=== PATIENT | female | born 1950 | race Caucasian/White ===

== ENCOUNTER 2017-02-19 19:15 | Emergency (ER) | payer OTHER ==
--- NOTE | 2017-02-19 21:30 | ED NURSING NOTES ---
Clinical Report - Nurses [facility] [address] [place] [address] 02/19/2017 19:14 Patient: VIPUL PURVIS TRIAGE Triage time 19:51 Feb 19 2017. Chief Complaint: ABDOMINAL PAIN. Alert. No acute distress. SEPSIS SCREEN: Sepsis Screen: negative. Negative (no infection suspected/documented). DIETER COMA SCORE: [place] Coma Scale: 15- eyes open spontaneously (4); best verbal response- oriented x 4 (5); best motor response- obeys commands (6). --20:01 Silvia Naranjo R.N. 19:51 02/19/17. BP: 201/66. HR: 83. RR: 16. O2 saturation: 97%. Temp: 98.3 F. Pain level now: 01/05. --20:01 Silvia Naranjo R.N. Weight: 54.4 kg stated. Height/Length: 61 inches Per Patient. BMI: 22.7. --19:59 Silvia Naranjo R.N. Medications Levothyroxine Sodium Oral. --19:55 Silvia Naranjo R.N. Albuterol Sulfate Inhalation. --19:55 Silvia Naranjo R.N. Allergies None. --19:55 Silvia Naranjo R.N. History Arrived by private vehicle. Historian: patient. Accompanied by family. Onset was abrupt. Started while sleeping. Symptoms still present (about 0030 today). She has had vomiting. Last oral intake by patient was (about 4 PM). Treatment [employer]ER: Took an antacid. Seen within the last 30 days in a clinic; labs done; EKG done; treatment- other medication. PAST MEDICAL HX: Gastroesophageal reflux disease. Immunizations: up-to-date. The patient is post-menopausal. Denies current . SOCIAL HX: Former smoker, end date 1980. Occasional alcohol use. No drug use. No recent travel. No infectious disease exposure. No known contact with a sick individual. SELF HARM ASSESSMENT: A self harm assessment was performed. The patient answered "no" to the question "Do you have thoughts of harming or killing yourself?". ABUSE ASSESSMENT: Abuse assessment: The patient was asked "Do you feel safe in your home?". --20:01 Silvia Naranjo R.N. PROBLEMS: Melanoma in situ of skin (clinical). Thyroid Disease. Breast Cancer. Asthma. --19:57 Silvia Naranjo R.N. ADDITIONAL SURGERIES: Lumpectomy of breast. Mastectomy. Skin cancer removed. --19:57 Silvia Naranjo R.N. Assessment The patient states feels better. --20:01 Silvia Naranjo R.N. Interventions ID band on patient. To room. --20:01 Silvia Naranjo R.N. PHYSICAL ASSESSMENT Ambulatory to room. GENERAL / NEURO / PSYCH: Alert. Oriented X 4. Appears in no acute distress. RESPIRATORY: Respirations not labored. CVS: Capillary refill less than 2 seconds. GI / : Abdomen soft. Abdominal tenderness in the epigastric area. SKIN: Skin is warm and dry. --20:02 Silvia Naranjo R.N. NURSING PROGRESS NOTES Pulse oximeter and NIBP monitor placed on patient; monitor alarms on. Patient gowned. Head of bed elevated. Patient identifiers checked. Call light placed in reach. Side rails up. Bed placed in lowest position. Brakes of bed on. --20:02 Silvia Naranjo R.N. 20:35. ( US here to see patient). --21:06 Silvia Naranjo R.N. The patient reports no complaints and she is calm and resting quietly. Overall patient status- she states feels better. --21:13 Silvia Naranjo R.N. 21:12 02/19/17. BP: 208/68. HR: 78. RR: 16. O2 saturation: 96%. Pain level now: 11/07. --21:13 Silvia Naranjo R.N. DISPOSITION / DISCHARGE Departure time: 2129Feb 19 2017. Condition at departure: improved. No learning barriers present. Discharge instructions provided and reviewed with the patient. Reviewed medication(s) side effects, precautions, dosing and course information. Prescription(s) given to the patient. Reviewed referral to a surgeon. Patient verbalized understanding. Written instructions provided in Croatian. The patient was discharged home and accompanied by spouse. She left the Emergency Department ambulatory and via private vehicle. Spouse driving. FALL RISK ASSESSMENT: Fall risk assessment completed. No fall risk identified. --22:33 Silvia Naranjo R.N. Locked/Released at 02/19/2017 22:34 by Silvia Naranjo R.N.
--- NOTE | 2017-02-19 21:30 | ED CLINICAL REPORT ---
Clinical Report - Physicians/Mid Levels [facility] [address] [place] [address] 02/19/2017 19:14 Patient: VIPUL PURVIS Time Seen: 2019Feb 19 2017. Arrived- By private vehicle. Historian- patient. HISTORY OF PRESENT ILLNESS Chief Complaint: ABDOMINAL PAIN. It is described as "pain" and it is described as located in the right upper quadrant and in the upper abdomen. Is still present. The patient has had nausea. No vomiting. (patient presents with abdominal pain since noon, previously essentially was eating a hamburger wallace her pain has now subsided. Patient was seen in urgent care prior to arrival, where her lab workup revealed some abnormal testing, and she was referred to the emergency department for further evaluation and workup. Patient denies any urgency frequency. He denies any shortness of breath or chest pain.). REVIEW OF SYSTEMS No constipation, black stools, difficulty with urination, pain with urination or headache. No chest pain. All systems otherwise negative, except as recorded above. SOCIAL HISTORY Former smoker. Alcohol use. No drug use. ADDITIONAL NOTES The nursing notes have been reviewed. PHYSICAL EXAM Vital Signs: 02/19/2017 19:51 BP: 201/66. HR: 83. RR: 16. O2 saturation: 97%. Temp: 98.3 F. Pain level now: 3/10. Appearance: Alert. No acute distress. Neck: Normal inspection. Neck supple. CVS: Normal heart rate and rhythm. Heart sounds normal. Respiratory: No respiratory distress. Breath sounds normal. Abdomen: Soft and nontender. Bowel sounds normal. No organomegaly. No mass. No abdominal tenderness. Back: Normal inspection. Skin: Skin warm. Normal skin color. Neuro: Oriented X 3. LABS, X-RAYS, AND EKG Abdominal Sonogram: (IMPRESSION: 1. Cholelithiasis without sonographic evidence for cholecystitis. The stone may be intermittently or partially obstructive. 2. Nuclear medicine hepatobiliary scan may be useful. Electronically Final signed by:Jaycee Pearson MD 02/19/2017 10:48:33 PM). PROGRESS AND PROCEDURES Course of Care: labs prior to arrival: EKG: vent rate 75, no st changes or elevation pr interval 136, normal sinus rhythm. CBC: WBC:7.89 hgb 15.3 hct 44.8 mcv 86 plt 206 neut 5.32 URINE: trace leuk, pos nitrate, dark yellow, neg ketones, neg bili, neg urobili ph 8 CMP: na 141 K 4.0 chloride 102 total co2 26 bun 12 cr 0.62 glucose 124 calcium 10.6 t. bili 3.1 ast 382 HIGH alt 173 high t. protein 7.1 albumin 4.6 alk phos 186 Lipase 61 (norm lmits 13-60) At this time patient has minimal pain, no signs of acute cholecystitis, and this patient will be discharged to home care. Patient is very stable. Patient with no signs of acute surgical abdomen, may require further monitoring of her pain and outpatient follow-up with surgery. Patient had outpatient EKG which is unremarkable. She reports history of high blood pressure and white coat syndrome. She will follow up with her blood pressure with her primary care provider. She denies any chest pain, shortness of breath or headache. 02/19/2017 21:12 BP: 208/68. HR: 78. RR: 16. O2 saturation: 96%. Pain level now: 10. Patient is stable. Physical exam findings are improved. Symptoms better. Patient/family counseled. Disposition: Discharged. Condition: good. CLINICAL IMPRESSION Biliary colic with a single gallstone. No cholecystitis. INSTRUCTIONS Drink plenty of fluids. Avoid alcohol and NSAIDS. NSAIDS include aspirin, ibuprofen (Advil) and naproxen (Aleve). Avoid fatty, fried/greasy, lactose-containing (such as milk, cheese and ice cream), salty and spicy foods. Prescription Medications: Zofran (orally disintegrating tablets) 4 mg: take 1 orally every 6 hours for 3 days as needed for nausea. Dispense ten (10). No refill. Follow-up with: Jarrell Palmer MD, General Surgeon, , [facility], [address] [place] [address] Follow up. Call for the next available appointment. (Electronically signed by Judy Santana P.A.-C 02/19/2017 22:58)
--- NOTE | 2017-02-19 21:30 | ED CLINICAL REPORT ---
Clinical Report - Physicians/Mid Levels [facility] [address] [place] [address] 02/19/2017 19:14 Patient: VIPUL PURVIS Time Seen: 2019Feb 19 2017. Arrived- By private vehicle. Historian- patient. HISTORY OF PRESENT ILLNESS Chief Complaint: ABDOMINAL PAIN. It is described as "pain" and it is described as located in the right upper quadrant and in the upper abdomen. Is still present. The patient has had nausea. No vomiting. (patient presents with abdominal pain since noon, previously essentially was eating a hamburger wallace her pain has now subsided. Patient was seen in urgent care prior to arrival, where her lab workup revealed some abnormal testing, and she was referred to the emergency department for further evaluation and workup. Patient denies any urgency frequency. He denies any shortness of breath or chest pain.). REVIEW OF SYSTEMS No constipation, black stools, difficulty with urination, pain with urination or headache. No chest pain. All systems otherwise negative, except as recorded above. SOCIAL HISTORY Former smoker. Alcohol use. No drug use. ADDITIONAL NOTES The nursing notes have been reviewed. PHYSICAL EXAM Vital Signs: 02/19/2017 19:51 BP: 201/66. HR: 83. RR: 16. O2 saturation: 97%. Temp: 98.3 F. Pain level now: 3/10. Appearance: Alert. No acute distress. Neck: Normal inspection. Neck supple. CVS: Normal heart rate and rhythm. Heart sounds normal. Respiratory: No respiratory distress. Breath sounds normal. Abdomen: Soft and nontender. Bowel sounds normal. No organomegaly. No mass. No abdominal tenderness. Back: Normal inspection. Skin: Skin warm. Normal skin color. Neuro: Oriented X 3. LABS, X-RAYS, AND EKG Abdominal Sonogram: (IMPRESSION: 1. Cholelithiasis without sonographic evidence for cholecystitis. The stone may be intermittently or partially obstructive. 2. Nuclear medicine hepatobiliary scan may be useful. Electronically Final signed by:Jaycee Pearson MD 02/19/2017 10:48:33 PM). PROGRESS AND PROCEDURES Course of Care: labs prior to arrival: EKG: vent rate 75, no st changes or elevation pr interval 136, normal sinus rhythm. CBC: WBC:7.89 hgb 15.3 hct 44.8 mcv 86 plt 206 neut 5.32 URINE: trace leuk, pos nitrate, dark yellow, neg ketones, neg bili, neg urobili ph 8 CMP: na 141 K 4.0 chloride 102 total co2 26 bun 12 cr 0.62 glucose 124 calcium 10.6 t. bili 3.1 ast 382 HIGH alt 173 high t. protein 7.1 albumin 4.6 alk phos 186 Lipase 61 (norm lmits 13-60) At this time patient has minimal pain, no signs of acute cholecystitis, and this patient will be discharged to home care. Patient is very stable. Patient with no signs of acute surgical abdomen, may require further monitoring of her pain and outpatient follow-up with surgery. Patient had outpatient EKG which is unremarkable. She reports history of high blood pressure and white coat syndrome. She will follow up with her blood pressure with her primary care provider. She denies any chest pain, shortness of breath or headache. 02/19/2017 21:12 BP: 208/68. HR: 78. RR: 16. O2 saturation: 96%. Pain level now: 10. Patient is stable. Physical exam findings are improved. Symptoms better. Patient/family counseled. Disposition: Discharged. Condition: good. CLINICAL IMPRESSION Biliary colic with a single gallstone. No cholecystitis. INSTRUCTIONS Drink plenty of fluids. Avoid alcohol and NSAIDS. NSAIDS include aspirin, ibuprofen (Advil) and naproxen (Aleve). Avoid fatty, fried/greasy, lactose-containing (such as milk, cheese and ice cream), salty and spicy foods. Prescription Medications: Zofran (orally disintegrating tablets) 4 mg: take 1 orally every 6 hours for 3 days as needed for nausea. Dispense ten (10). No refill. Follow-up with: Jarrell Palmer MD, General Surgeon, , [facility], [address] [place] [address] Follow up. Call for the next available appointment. (Electronically signed by Judy Santana P.A.-C 02/19/2017 22:58)
--- NOTE | 2017-02-19 21:30 | ED ORDER SUMMARY ---
..... Patient: VIPUL PURVIS OrderSheet [facility] VisitID: [id number] [place] [address] 66y, F Registration Date/Time: 02/19/2017 ORDER SHEET Weight: 54.4 kg (stated) Allergies: None GENERAL ORDERS: US Abdomen Limited (No) Urgent (19:47 02/19/2017 Martin Antonio-C) (Ack 19:50 SRedmond) (21:05 Carson R.N.) Vitals (20:46 02/19/2017 Martin Antonio-C) (Ack 20:47 SRedmond) (21:13 Carson R.N.) MEDICATION ORDERS: IV FLUIDS: ORDER SHEET NOTES: [Electronically signed by Silvia Naranjo R.N. (22:34 02/19/2017)] [Electronically signed by Judy Santana P.A.-C (22:58 02/19/2017)] [Electronically locked/signed by Silvia Naranjo R.N. (22:34 02/19/2017)]
--- NOTE | 2017-02-19 21:30 | ED NURSING NOTES ---
Clinical Report - Nurses [facility] [address] [place] [address] 02/19/2017 19:14 Patient: VIPUL PURVIS TRIAGE Triage time 19:51 Feb 19 2017. Chief Complaint: ABDOMINAL PAIN. Alert. No acute distress. SEPSIS SCREEN: Sepsis Screen: negative. Negative (no infection suspected/documented). DIETER COMA SCORE: [place] Coma Scale: 15- eyes open spontaneously (4); best verbal response- oriented x 4 (5); best motor response- obeys commands (6). --20:01 Silvia Naranjo R.N. 19:51 02/19/17. BP: 201/66. HR: 83. RR: 16. O2 saturation: 97%. Temp: 98.3 F. Pain level now: 01/05. --20:01 Silvia Naranjo R.N. Weight: 54.4 kg stated. Height/Length: 61 inches Per Patient. BMI: 22.7. --19:59 Silvia Naranjo R.N. Medications Levothyroxine Sodium Oral. --19:55 Silvia Naranjo R.N. Albuterol Sulfate Inhalation. --19:55 Silvia Naranjo R.N. Allergies None. --19:55 Silvia Naranjo R.N. History Arrived by private vehicle. Historian: patient. Accompanied by family. Onset was abrupt. Started while sleeping. Symptoms still present (about 0030 today). She has had vomiting. Last oral intake by patient was (about 4 PM). 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 Seen within the last 30 days in a clinic; labs done; EKG done; treatment- other medication. PAST MEDICAL HX: Gastroesophageal reflux disease. Immunizations: up-to-date. The patient is post-menopausal. Denies current . SOCIAL HX: Former smoker, end date 1980. Occasional alcohol use. No drug use. No recent travel. No infectious disease exposure. No known contact with a sick individual. SELF HARM ASSESSMENT: A self harm assessment was performed. The patient answered "no" to the question "Do you have thoughts of harming or killing yourself?". ABUSE ASSESSMENT: Abuse assessment: The patient was asked "Do you feel safe in your home?". --20:01 Silvia Naranjo R.N. PROBLEMS: Melanoma in situ of skin (clinical). Thyroid Disease. Breast Cancer. Asthma. --19:57 Silvia Naranjo R.N. ADDITIONAL SURGERIES: Lumpectomy of breast. Mastectomy. Skin cancer removed. --19:57 Silvia Naranjo R.N. Assessment The patient states feels better. --20:01 Silvia Naranjo R.N. Interventions ID band on patient. To room. --20:01 Silvia Naranjo R.N. PHYSICAL ASSESSMENT Ambulatory to room. GENERAL / NEURO / PSYCH: Alert. Oriented X 4. Appears in no acute distress. RESPIRATORY: Respirations not labored. CVS: Capillary refill less than 2 seconds. GI / : Abdomen soft. Abdominal tenderness in the epigastric area. SKIN: Skin is warm and dry. --20:02 Silvia Naranjo R.N. NURSING PROGRESS NOTES Pulse oximeter and NIBP monitor placed on patient; monitor alarms on. Patient gowned. Head of bed elevated. Patient identifiers checked. Call light placed in reach. Side rails up. Bed placed in lowest position. Brakes of bed on. --20:02 Silvia Naranjo R.N. 20:35. ( US here to see patient). --21:06 Silvia Naranjo R.N. The patient reports no complaints and she is calm and resting quietly. Overall patient status- she states feels better. --21:13 Silvia Naranjo R.N. 21:12 02/19/17. BP: 208/68. HR: 78. RR: 16. O2 saturation: 96%. Pain level now: 11/07. --21:13 Silvia Naranjo R.N. DISPOSITION / DISCHARGE Departure time: 2129Feb 19 2017. Condition at departure: improved. No learning barriers present. Discharge instructions provided and reviewed with the patient. Reviewed medication(s) side effects, precautions, dosing and course information. Prescription(s) given to the patient. Reviewed referral to a surgeon. Patient verbalized understanding. Written instructions provided in Slovak. The patient was discharged home and accompanied by spouse. She left the Emergency Department ambulatory and via private vehicle. Spouse driving. FALL RISK ASSESSMENT: Fall risk assessment completed. No fall risk identified. --22:33 Silvia Naranjo R.N. Locked/Released at 02/19/2017 22:34 by Silvia Naranjo R.N.
--- NOTE | 2017-02-19 21:30 | ED ORDER SUMMARY ---
..... Patient: VIPUL PURVIS OrderSheet [facility] VisitID: [id number] [place] [address] 66y, F Registration Date/Time: 02/19/2017 ORDER SHEET Weight: 54.4 kg (stated) Allergies: None GENERAL ORDERS: US Abdomen Limited (No) Urgent (19:47 02/19/2017 Martin Antonio-C) (Ack 19:50 SRedmond) (21:05 Carson R.N.) Vitals (20:46 02/19/2017 Martin Antonio-C) (Ack 20:47 SRedmond) (21:13 Carson R.N.) MEDICATION ORDERS: IV FLUIDS: ORDER SHEET NOTES: [Electronically signed by Silvia Naranjo R.N. (22:34 02/19/2017)] [Electronically signed by Judy Santana P.A.-C (22:58 02/19/2017)] [Electronically locked/signed by Silvia Naranjo R.N. (22:34 02/19/2017)]
--- NOTE | 2017-02-19 22:48 | DIAGNOSTIC IMAGING REPORT ---
PROCEDURE: US ABDOMEN ULTRASOUND-LIMITED INDICATION: RUQ PAIN TECHNIQUE: Archuleta scale and color Doppler sonographic images were obtained of the right upper quadrant. COMPARISON: None. FINDINGS: The liver is normal in size, contour, and echotexture. No mass or biliary dilatation. The gallbladder contains a single large stone measuring 1.6 cm which lies dependently in the gallbladder neck but move slightly with change in patient position. Gallbladder wall is at the upper limits of normal in thickness measuring approximately 2.6-3.2 mm no pericholecystic fluid. No definite Dominguez's sign per the technologist although the patient was diffusely tender. Extrahepatic common duct is normal at 4.9 mm. The visible portion of the inferior vena cava, abdominal aorta, and portal vein appear normal with appropriate direction of flow in the portal vein. The right kidney is normal measuring 11.6 cm. No free fluid in the right upper quadrant. IMPRESSION: 1. Cholelithiasis without sonographic evidence for cholecystitis. The stone may be intermittently or partially obstructive. 2. Nuclear medicine hepatobiliary scan may be useful.
--- NOTE | 2017-02-19 22:58 | ED MAR SUMMARY ---
..... Medication Administration Record [facility] [address], [place] [id number] Patient: VIPUL PURVIS Visit ID: [id number] 66y, F Weight: 54.4 kg Height/Length: 61 in BMI: 22.7 ALLERGIES: None
--- NOTE | 2017-02-19 22:58 | ED MED RECONCILIATION SUMMARY ---
Patient: VIPUL PURVIS Medication Reconciliation Report [facility] VisitID: [id number] [address] [place] [address] 66y, F Registration Date/Time: 02/19/2017 Weight: 54.4 kg Height/Length: 61 in. BMI: 22.7 ALLERGIES: None The patient's Home Medications are listed below: THE FOLLOWING MEDICATIONS NEED TO BE RECONCILED: Albuterol Sulfate Inhalation Levothyroxine Sodium Oral The source(s) of the original Home Medication information: Not obtained. The following Medications were given to the patient in the Emergency Department: None. The following Medications were prescribed to the patient: Zofran (orally disintegrating tablets) 4 mg: take 1 orally every 6 hours for 3 days as needed for nausea. Dispense ten (10). No refill. -- Judy Santana PAndreaAAndrea-C
--- NOTE | 2017-02-19 22:58 | ED DISCHARGE INSTRUCTIONS ---
Patient: VIPUL PURVIS General Instructions [facility] VisitID: [id number] [place] [address] 66y, F Registration Date/Time: 02/19/2017 Biliary colic with a single gallstone. No cholecystitis. INSTRUCTIONS Drink plenty of fluids. Avoid alcohol and NSAIDS. NSAIDS include aspirin, ibuprofen (Advil) and naproxen (Aleve). Avoid fatty, fried/greasy, lactose-containing (such as milk, cheese and ice cream), salty and spicy foods. Prescription Medications: Zofran (orally disintegrating tablets) 4 mg: take 1 orally every 6 hours for 3 days as needed for nausea. Dispense ten (10). No refill. Follow-up with: Jarrell Palmer MD, General Surgeon, , [facility], [address] [place] [address] Follow up. Call for the next available appointment. ADDITIONAL INFORMATION GallstonesWith Biliary Colic [Confirmed Dx] The abdominal pain that you have today is due to spasm of the gallbladder. The gallbladder is a small sac under the liver which stores and releases bile. Bile is a fluid that aids in the digestion of fat. A gallstone may form inside the gallbladder and block the flow of bile fluid. This causes mild to severe crampy pain in the mid or right upper abdomen with nausea and vomiting. Home Care: Rest in bed and follow a clear liquid diet until feeling better. If pain or nausea medicine was given to help with your symptoms, take these as directed. Fat in your diet makes the gallbladder contract and may cause increased pain. Therefore, avoid fat in your diet over the next two days and follow a low-fat diet after that. If you are overweight, a low-fat diet will also help you lose weight. Follow Up with your doctor. There is a 50% chance that you will have another episode of pain from your gallstones during the next 2 years. Removal of the gallbladder is the treatment of choice to prevent this. Schedule an appointment with your own doctor during the next week to discuss the treatment options. Get Prompt Medical Attention if any of the following occur: Pain gets worse or moves to the right lower abdomen Repeated vomiting Swelling of the abdomen Pain lasts over 6 hours Fever of 100.4F (38C) or higher, or as directed by your healthcare provider Weakness, dizziness or fainting Dark urine or light colored stools Yellow color of the skin or eyes Chest, arm, back, neck or jaw pain [place] Diet A bland diet is used for patients with an upset stomach. It consists of foods that are mild and easy to digest. It is better to eat small frequent meals rather than three large meals a day. BEVERAGES OK: Fruit juices, non-caffeinated teas and coffee, non-carbonated walls AVOID: Carbonated beverage, caffeinated tea and coffee, all alcoholic beverages BREAD OK: Refined white, wheat or rye bread, pacheco or soda crackers, [place] toast, plain rolls, bagels AVOID: Whole-grain bread CEREAL OK: Refined cereals: cooked or ready to eat AVOID: Whole grain cereals and granola, or those containing bran, seeds or nuts DESSERTS OK: Peanut butter and all others except those to "avoid" AVOID: Chocolate, cocoa, coconut, popcorn, nuts, seeds, jam, marmalade FRUITS OK: Canned, cooked, frozen or fresh fruits without seeds or tough skin AVOID: Olives, skin and seeds of fruit MEATS OK: All fresh or preserved meat, fish and fowl AVOID: Any that are prepared with those spices to "avoid" CHEESE & EGGS OK: Eggs, cottage cheese, cream cheese, other cheeses AVOID: All cheeses made with those spices to "avoid" POTATOES & PASTA OK: Potato, rice, macaroni, noodles, spaghetti AVOID: None SOUPS OK: All soups without heavy seasoning AVOID: Soups made with those spices to "avoid" VEGETABLES OK: Canned, cooked, fresh or frozen mildly flavored vegetables without seeds, skins or coarse fiber AVOID: Vegetables prepared with those spices to "avoid"; skin and seeds of vegetables and those with coarse fiber SPICES OK: Salt, lemon and [place] juice, vinegar, all extracts, chapincito, cinnamon, thyme, mace, allspice, paprika AVOID: [place] powder, cloves, pepper, seed spices, garlic, gravy pickles, highly seasoned salad dressings Clear Liquid Diet Clear liquids are any liquid that you can see through as well as those that are very easy to digest. This is used while the body is recovering from irritation or infection of the stomach or intestinal tract. It may also be used before special procedures or surgery. This diet is to be used no more than three days. You may include the following items. Adults Adults should drink a total of 23 quarts of liquid per day. It may be easier to drink small frequent servings rather than a few large ones. Liquids can include: Fruit juices.Strained orange juice or lemonade (no pulp), apple, grape and cranberry juice, clear fruit drinks, sports drinks Beverages.Sport drinks, sodas, mineral water (plain or flavored), tea, black coffee, liquid gelatin (add twice the recommended amount of water) Soups.Clear broth, consomm, bouillon Desserts.Plain gelatin, popsicles, fruit juice bars Children Over 2 years old The following liquids are acceptable for children over age 2: Fruit juices.Strained orange juice or lemonade (no pulp), apple, grape and cranberry juice, clear fruit drinks Beverages. Sports drinks, sodas, mineral water (plain or flavored), tea, liquid gelatin (add twice the recommended amount of water) Soups. Clear broth, consomm, bouillon Desserts. Plain gelatin, popsicles, fruit juice bars Children under 2 years old Oral rehydration fluids such are available at drug stores and most grocery stores without a prescription. You have been given the following additional information: Biliary Colic With Gallstone (Confirmed) Diet, [place] (Adult) Diet, Clear Liquid (Electronically signed by Judy Santana P.A.-C 02/19/2017 22:58)
--- NOTE | 2017-02-19 22:58 | ED MAR SUMMARY ---
..... Medication Administration Record [facility] [address] [place], [place] [id number] Patient: VIPUL PURVIS Visit ID: [id number] 66y, F Weight: 54.4 kg Height/Length: 61 in BMI: 22.7 ALLERGIES: None
--- NOTE | 2017-02-19 22:58 | ED MED RECONCILIATION SUMMARY ---
Patient: VIPUL PURVIS Medication Reconciliation Report [facility] VisitID: [id number] [address] [place] [address] 66y, F Registration Date/Time: 02/19/2017 Weight: 54.4 kg Height/Length: 61 in. BMI: 22.7 ALLERGIES: None The patient's Home Medications are listed below: THE FOLLOWING MEDICATIONS NEED TO BE RECONCILED: Albuterol Sulfate Inhalation Levothyroxine Sodium Oral The source(s) of the original Home Medication information: Not obtained. The following Medications were given to the patient in the Emergency Department: None. The following Medications were prescribed to the patient: Zofran (orally disintegrating tablets) 4 mg: take 1 orally every 6 hours for 3 days as needed for nausea. Dispense ten (10). No refill. -- Judy Santana PAndreaAAndrea-C
[2017-03-28] MEDS ORDERED: NORCO1 TA1 PO (17:38)
[2017-03-28] MEDS ORDERED: ALBUTEROL HFA60 DOSE IN (17:38)
[2017-03-28] MEDS ORDERED: LEVOTHYROXINE50 MCG PO (17:39)
== END 2017-02-19 21:30 | disposition home or self-care (01) ==
LOC: ED SRH 19:15
DX: K80.70 Calculus of gallbladder and bile duct without cholecystitis without obstruction (principal); E07.9 Disorder of thyroid, unspecified; Z79.899 Other long term (current) drug therapy; Z87.891 Personal history of nicotine dependence

== ENCOUNTER 2017-04-02 06:45 | Day surgery (SDC) | payer OTHER ==
[~2017-04-02] VITALS: Ht 154.9 cm; Wt 54.0 kg
[~2017-04-02 06:45] MED LIST: ALBUTEROL HFA60 DOSE IN; LEVOTHYROXINE50 MCG PO; NORCO1 TA1 PO
--- NOTE | 2017-04-02 07:19 | NUR ---
PREOP INSTRUCTIONS GIVEN TO PATIENT. QUESTIONS ANSWERED. PATIENT VERBALIZES UNDERSTANDING. CONSENT CONFIRMED. SCDs ON. TYLENOL STARTED IN ROUTE TO PREOP HOLDING. PATIENT RESTING COMFORTABLY. IN ROOM. KB
[2017-04-02] MEDS ORDERED: HYCET1 ML PO (09:25)
--- NOTE | 2017-04-02 09:26 | Provider's Discharge Care Plan ---
Problem, Goal, Plan Problem List 1. S/P LAP BRAYDEN Goals: Improve disease control, Therapeutic intervention Instructions: Follow up as directed, Take meds as directed, F/U WITH PCP FOR BP CK
--- NOTE | 2017-04-02 09:33 | Operative Report ---
Operative Report Date of Surgery: 04/02/17 Preoperate Diagnosis: symptomatic cholelithiasis Postoperative Diagnosis: symptomatic cholelithiasis Surgeon: Jarrell Palmer MD Tank Insulator [employer]ber Surgeon: none Procedure Performed: Laparoscopic cholecystectomy with fluoroscopic intraoperative cholangiogram ( interpretation) Anesthesia: Gen. endotracheal Indications: 66-year-old female prior to admission, had developed right upper quadrant epigastric abdominal pain in the middle of the night. Patient was evaluated with ultrasound showing cholelithiasis. FINDINGS: [place] egg blue gallbladder. Fatty infiltrated liver, prominent left lobe of the liver, obscuring the gallbladder. Intraoperative cholangiogram showed free flow of contrast material into the duodenum, visualization intra- hepatic ducts, hepatic duct, common bile duct. No evidence of obstruction Surgical Technique: Patient brought to the operating room and placed in the dorsal supine position. Patient was administered general endotracheal anesthesia by the anesthesiology department. After proper anesthesia taken effect patient's abdomen was prepped using Betadine and draped in a sterile fashion. An infraumbilical incision made in the skin and down through the subcutaneous tissue. A Veress needle was inserted through this site and into the abdominal cavity. After ascertaining the appropriate position with suction irrigation a pneumoperitoneum was obtained using CO2 insufflation to approximate 14 15 mmHg pressure. The varices needle was removed and replaced with 10 mm trocar. The trocar removed leaving the sleeve behind. A laparoscopic video camera was introduced into the abdominal cavity. Under direct visualization a separate 10 mm trocar was placed in subxiphoid region. Two 5 mm trochars were placed in the anterior lateral abdominal wall approximately 3-4 fingerbreadths below the costal margin. Each trocar entered the abdominal cavity under direct visualization. Trochars removed leaving the sleeve behind through which laparoscopic instrumentation was introduced into the abdominal cavity. The aforementioned findings noted. The gallbladder grasped retracted cephalad. Using a combination of blunt dissection and electrocautery were able to circumferentially isolate the cystic duct. A clip was placed at the junction of the neck of the cystic duct and the gallbladder. Small incision made in the anterior surface of the cystic duct. Percutaneous cholangiocatheter was threaded through the anterior abdominal wall into the cystic duct and clipped into position. The fluoroscopic intraoperative cholangiogram was performed.. The aforementioned findings noted, the cholangiogram catheter was retrieved from the cystic duct and the abdominal cavity. The distal cystic duct was clipped in continuity divided. The cystic artery identified clipped continuity divided. The gallbladder was taken down from its bed in a retrograde fashion using electrocautery dissection. When the gallbladder was completely free from its bed, the gallbladder was placed in a sterile specimen container bag and retrieved from the abdominal cavity. The gallbladder specimen was sent to pathology. The gallbladder bed was inspected for hemostasis. The assuring ourselves of proper hemostasis, the right upper quadrant was irrigated copiously with normal saline antibiotic solution and irrigant suctioned out. Approximately 30 cc 0.5% Marcaine with epinephrine were sprayed over the right lobe of of the liver for postop analgesia. The pneumoperitoneum released. All trochars removed and the abdominal cavity. All trocar sites were approximated using 4-0 subcuticular Polysorb interrupted suture. Steri-Strips placed over the wound. Sterile occlusive dressing placed over each site. Patient tolerated procedure well. Patient was extubated and transferred recovery room in stable condition. There were no intraoperative anesthetic outpatient. CONDITION: Stable to postop recovery room COMPLICATIONS: None ESTIMATED BLOOD LOSS: None FLUIDS: 500 cc lactate Ringer's SPECIMEN: Gallbladder and contents
--- NOTE | 2017-04-02 09:54 | DIAGNOSTIC IMAGING REPORT ---
PROCEDURE: XR INTRAOPERATIVE LAP BRAYDEN INDICATION: CHOLELITHIASIS TECHNIQUE: Intraoperative fluoroscopy provided for Dr. Palmer performing an intraoperative cholangiogram following cholecystectomy. Total fluoroscopy time 0.04 minutes Cumulative dose 0.8 mGy. COMPARISON: None. FINDINGS: One intraoperative fluoroscopic spot images of the right upper quadrant of the abdomen demonstrate cannulation of the cystic duct stump and opacification of the intrahepatic and extrahepatic biliary tree. There are no filling defects. There is normal passage of contrast into the duodenum. IMPRESSION: 1. Negative intraoperative cholangiogram.
--- NOTE | 2017-04-02 10:21 | NUR ---
PATIENT BACK FROM OR. VITALS STABLE. NAUSEATED. MEDICATED FOR NAUSEA PER ORDERS. ABDOMEN SOFT. DRESSINGS CLEAN, DRY AND INTACT. WILL CONTINUE TO MONITOR.
--- NOTE | 2017-04-02 10:22 | NUR ---
LE; PT WAS BROUGHT TO PACU PRE OP DUE TO ELEVATED BP. ANESTHESIA AND FIRE LOOKOUT PRESENT. PT AWAKE AND COMFORTABLE. BP 212/72-78.98% SAT. LABETALOL 5MG GIVEN BY DR. SHIRLEY AT 0750 BP 209/62-62- AT 0802 LABETALOL REPEATED- 198/70 -64 -16 97% AT 0808 LABETALOL REPEATED- 5 MG IV BY ANESTHESIA -187/62 -62 16
--- NOTE | 2017-04-02 11:17 | NUR ---
LATE ENTRY. PRIOR D/C FROM PACU PT IS AWAKE AND ALERT.PT IS COMFORTABLE AND WARM. PT STATES 5/10 ABOMINAL PAIN BUT REFUSED FENTANYL FOR PAIN. VSS. ABOMEN IS SOFT. DRESSING IS CLEAN. PT WAS GIVEN ZOFRAN 4MG IV UPON ARRIVAL TO SCU DUE TO MILD NAUSEA SHE DEVELOPED DURING TRASPORTATION FROM PACU. REPORT GIVEN TO MANUEL MERA.
--- NOTE | 2017-04-02 11:37 | NUR ---
1115-GAVE 6.25 DEMEROL IV FOR PAIN 05/07, NAUSEA PASSED, COLOR IS BETTER. 1129-CO RIGHT SHOULDER PAIN, EDUCATED ON POST OP PAIN AND WALKING TO GET RID OF GAS, PT STATES SHE WANTED TO WALK, UP WITH WALKER AND DID 3 LAPS, JESSICA WELL, NO NAUSEA, JESSICA CRACKERS AND TEA, AMBULATING AT SIDE.
[2017-04-02 12:00] VITALS: BP 179/71
--- NOTE | 2017-04-02 12:27 | NUR ---
PATIENT DEPARTED AT 1218. VITALS STABLE. NAUSEA RESOLVED. TOLERATING PO INTAKE. DRESSINGS REMAIN CLEAN, DRY AND INTACT. IV DISCONTINUED. DISCHARGE INSTRUCTIONS DISCUSSED, INCLUDING WOUND CARE, PAIN MANAGEMENT AND SIGNS/SYMPTOMS TO REPORT. PATIENT VERBALIZED UNDERSTANDING UPON DEPARTURE.
== END 2017-04-02 12:18 | disposition home or self-care (01) ==
LOC: SCU SRH 06:45 → OR SRH 06:45
PROVIDERS: Specialist
PROC: 0FT44ZZ Resection of Gallbladder, Percutaneous Endoscopic Approach (ICD-10-PCS; principal; 2017-04-02 08:15)
PROC: BF131ZZ Fluoroscopy of Gallbladder and Bile Ducts using Low Osmolar Contrast (ICD-10-PCS; principal; 2017-04-02 08:15)
DX: K80.10 Calculus of gallbladder with chronic cholecystitis without obstruction (principal); R03.0 Elevated blood-pressure reading, without diagnosis of hypertension; K76.0 Fatty (change of) liver, not elsewhere classified; J45.909 Unspecified asthma, uncomplicated
CPT/HCPCS: 29229; 29240; 50002; 60001; 70002; 80102; 80212; 80248; 82669; 82794; 82807; 83338; 83339; 83348; 83587; 83937; 83982; 84038

== ENCOUNTER 2017-05-02 12:57 | Outpatient (CLI) | payer OTHER ==
[~2017-05-02 12:57] MED LIST changes: +HYCET1 ML PO
--- NOTE | 2017-05-02 14:50 | DIAGNOSTIC IMAGING REPORT ---
PROCEDURE: MG BILATERAL SCREENING W/CAD INDICATION: Screening. History of bilateral breast carcinoma with lumpectomy and radiation. TECHNIQUE: Bilateral CC and MLO digital views. COMPARISON: Compared to 02/25/2016, 01/01/2015, and 12/09/2013. FINDINGS: Computer-aided detection applied. Mildly dense parenchymal pattern with a few dystrophic calcifications. There are postoperative changes in the upper outer bilateral breasts with multiple surgical clips, parenchymal scarring, and dystrophic calcifications. There has been no change. IMPRESSION: 1. Negative mammogram with stable postoperative changes of bilateral breasts. RESULT CODE: 2- Benign finding(s). A. A negative report should not delay biopsy if a dominant or clinically suspicious mass is present. 10-15% of cancers are not identified by x-ray. B. A negative report may reinforce clinical impression. C. Adenosis and dense breasts may obscure an underlying neoplasm. D. False positive reports average 6-10%. E.. A yearly screening mammogram is recommended. A reminder letter will be scheduled.
== END 2017-05-02 23:00 ==
LOC: MAM SRH 12:57
DX: Z12.31 Encounter for screening mammogram for malignant neoplasm of breast (principal)